=== PATIENT | male | born 1970 | race Hispanic/Latino ===

== ENCOUNTER 2025-01-05 16:48 | Emergency (ER) | payer SELFPAY ==
[~2025-01-05] VITALS: Ht 170.2 cm; Wt 116.6 kg
[2025-01-05] MEDS ORDERED: SODIUM CHLORIDE FLUSH 10 ML SYR IV PRN (17:00)
[2025-01-05 17:02] VITALS: PULSE 69; RESP 18; TEMP 98.1
[2025-01-05 17:06] LABS: BASOPHILS # (AUTO) 0.1 (0.0-0.1); BASOPHILS % 0.6 % (0.0-1.0); EOSINOPHILS # (AUTO) 0.3 (0.0-0.4); EOSINOPHILS % 3.6 % (0.0-6.0); HEMATOCRIT 37.9 % (38.2-49.6); HEMOGLOBIN 12.7 g/dL (14.0-18.0); LYMPHOCYTES # (AUTO) 2.6 (1.0-3.2); LYMPHOCYTES % 34.3 % (18.0-39.1); MEAN CORPUSCULAR HEMOGLOBIN 29.7 pg (28-32); MEAN CORPUSCULAR HGB CONC 33.5 g/dL (31-35); MEAN CORPUSCULAR VOLUME 88.6 fL (81-99); MONOCYTES # (AUTO) 1.1 (0.2-0.8); MONOCYTES % 14.2 % (4.4-11.3); NEUTROPHILS # (AUTO) 3.5 (2.1-6.9); NEUTROPHILS % 45.5 % (38.7-80.0); PLATELET COUNT 229 x10e3/uL (140-360); RED BLOOD COUNT 4.28 x10e6/uL (4.3-5.7); RED CELL DISTRIBUTION WIDTH 12.8 % (11.7-14.4)
[2025-01-05] MEDS: FLUORESCEIN SOD(OPTH) 1 MG STRP OP ONE (17:23)
[2025-01-05] MEDS: ALBUTEROL/IPRATROPIUM 3 ML NEB NEB ONE (17:24)
[2025-01-05] MEDS: TETRACAINE HCL 0.5% OPTH SOLN 4 ML BTL OP ONE (17:24)
[2025-01-05 17:27] LABS: ALBUMIN 3.3 g/dL (3.5-5.0); ANION GAP 12.7 mmol/L (8-16); BILIRUBIN,TOTAL 0.5 mg/dL (0.2-1.2); CALCIUM 8.6 mg/dL (8.4-10.2); CREATININE, SERUM 0.79 mg/dL (0.72-1.25); POTASSIUM 3.7 mmol/L (3.5-5.1); TOTAL PROTEIN 6.5 g/dL (6.5-8.1)
[2025-01-05 17:32] LABS: TROPONIN I 0.005 ng/mL (0-0.300)
[2025-01-05 17:45] LABS: CORONAVIRUS COVID-19 AG NEGATIVE (NEGATIVE); INFLUENZA A AG NEGATIVE (NEGATIVE); INFLUENZA B AG NEGATIVE (NEGATIVE)
[2025-01-05] MEDS ORDERED: BENZONATATE100 MG PO (18:29)
[2025-01-05] MEDS ORDERED: VIGAMOX3 ML OS (18:29)
[2025-01-05 18:58] VITALS: BP 142/81; PULSE 78; RESP 18; TEMP 97.9; O2SAT 100
== END 2025-01-05 19:00 | disposition home or self-care (01) ==
LOC: ER 16:54
DX: R05.9 Cough, unspecified (principal); R06.00 Dyspnea, unspecified; R55 Syncope and collapse; S05.8X1A Other injuries of right eye and orbit, initial encounter; W18.39XA Other fall on same level, initial encounter; Y92.89 Other specified places as the place of occurrence of the external cause; Z11.52 Encounter for screening for COVID-19
CPT/HCPCS: 36415; 70450; 70486; 71045; 80053; 83880; 84484; 85025; 93005; 94760; 99284